=== PATIENT | male | born 1990 | race Caucasian/White ===

== ENCOUNTER 2020-02-12 08:26 | Outpatient (CLI) | payer OTHER, SELFPAY ==
[2020-02-12 09:46] LABS: Viscosity Semen High Viscosity
[2020-02-12 09:48] LABS: Epithelial Count Semen 0-4 /hpf; Pathology Referral Yes; Sperm Immotility 20 % (50-60); Sperm Non-Progressive Motility 0 % (5-10); Sperm Progressive Motility 80 % (31-34); White Blood Count Semen 0-4 /hpf
[2020-02-12 10:15] LABS: Side 1 27
[2020-02-12 10:16] LABS: Side 2 29
== END 2020-02-12 08:27 | disposition home or self-care (01) ==
PROVIDERS: Visit Provider Obstetrics & Gynecology
DX: N46.9 Male infertility, unspecified (principal)
CPT/HCPCS: 80500; 89320

== ENCOUNTER → 2020-03-26 09:52 | Outpatient (BNVA) | payer OTHER, SELFPAY | PROVIDERS: PCP Obstetrics & Gynecology; Referring Provider Obstetrics & Gynecology; Visit Provider Urology | DX: N46.11 Organic oligospermia (principal); I67.5 Moyamoya disease; R56.9 Unspecified convulsions | CPT/HCPCS: 81003 ==

== ENCOUNTER 2020-07-01 14:15 | Outpatient (CLI) | payer OTHER, SELFPAY ==
[2020-07-01 14:58] LABS: Viscosity Semen High Viscosity
[2020-07-01 15:03] LABS: Sperm Immotility 5 % (50-60); Sperm Non-Progressive Motility 10 % (5-10); Sperm Progressive Motility 85 % (31-34)
[2020-07-01 16:00] LABS: Side 1 70
[2020-07-01 16:02] LABS: Side 2 73
== END 2020-07-01 14:16 | disposition home or self-care (01) ==
LOC: LAB 14:20
PROVIDERS: Urology; PCP Obstetrics & Gynecology; Visit Provider Obstetrics & Gynecology
DX: N46.11 Organic oligospermia (principal)
CPT/HCPCS: 89320

== ENCOUNTER → 2020-07-06 15:18 | Outpatient (BNVA) | payer OTHER, SELFPAY | PROVIDERS: PCP Obstetrics & Gynecology; Visit Provider Urology | DX: N46.11 Organic oligospermia (principal); F17.210 Nicotine dependence, cigarettes, uncomplicated | CPT/HCPCS: 81003 ==

== ENCOUNTER → 2022-07-26 10:30 | Outpatient (BNVA) | payer SELFPAY | PROVIDERS: PCP Family Medicine; Visit Provider Family Medicine | DX: R00.0 Tachycardia, unspecified (principal); Z68.42 Body mass index [BMI] 45.0-49.9, adult; R51.9 Headache, unspecified; I67.5 Moyamoya disease | CPT/HCPCS: 80053; 80061; 84439; 84443; 85025 ==

== ENCOUNTER 2025-04-09 14:13 | Outpatient (CLI) | payer BC, SELFPAY | END 2025-04-09 14:14 | disposition home or self-care (01) | LOC: SLEEP 14:14 | PROVIDERS: PCP Family Medicine; Visit Provider Family Medicine | DX: G47.19 Other hypersomnia (principal) | CPT/HCPCS: G0399 ==